=== PATIENT | female | born 1965 | race Caucasian/White ===

== ENCOUNTER → 2021-05-21 08:55 | Outpatient (BNVA) | payer OTHER, SELFPAY | PROVIDERS: PCP Pediatrics; Visit Provider Nurse Practitioner Family | DX: R51.9 Headache, unspecified (principal); R41.3 Other amnesia; L29.9 Pruritus, unspecified; Z86.73 Personal history of transient ischemic attack (TIA), and cerebral infarction without residual deficits; Z87.898 Personal history of other specified conditions; Z79.82 Long term (current) use of aspirin | CPT/HCPCS: 99202 ==